=== PATIENT | female | born 1995 | race Caucasian/White ===

== ENCOUNTER → 2022-09-14 15:01 | Outpatient (CLI) | payer OTHER, SELFPAY ==
--- NOTE | ~2022-09-14 | XR_ITS ---
XR lumbar spine 2-3V DATE: 09/14/2022 15:31 INDICATION: Low back pain following a fall 3 days ago TECHNIQUE: AP, lateral, coned lateral lumbosacral views COMPARISON: None FINDINGS: There is slight levoscoliosis. No fracture or bone destruction or spondylolisthesis. Lumbar and lumbosacral interspaces appear well preserved. The lumbar pedicles are intact. The sacrum joints appear normal. IUD overlies the pelvis. IMPRESSION: Slight lumbar levoscoliosis IUD Reviewed, dictated and finalized at location A. [employer]
== END ==
PROVIDERS: PCP Internal Medicine; Visit Provider Internal Medicine
DX: M54.50 Low back pain, unspecified (principal); Z97.5 Presence of (intrauterine) contraceptive device
CPT/HCPCS: 72100

== ENCOUNTER 2023-04-20 13:49 | Outpatient (CLI) | payer OTHER, SELFPAY ==
--- NOTE | ~2023-04-20 | XR_ITS ---
AP and lateral views of the left hip Clinical history: Pain Findings: No acute fracture or dislocation is seen. Osseous alignment is anatomic. Bilateral hip and SI joint spaces are preserved. Soft tissues are unremarkable. IUD in place. Impression: No significant abnormality is seen. Reviewed, dictated and finalized at [facility]. Impression: No significant abnormality is seen.
--- NOTE | ~2023-04-20 | XR_ITS ---
AP and lateral views of the left femur Clinical History: Pain Findings: No acute fracture or dislocation is seen. Osseous alignment is anatomic. Visualized joint s paces are grossly preserved. Soft tissues are unremarkable. Impression: Unremarkable left femoral radiographs. Reviewed, dictated and finalized at location M. Impression: Unremarkable left femoral radiographs.
== END 2023-04-20 13:50 | disposition home or self-care (01) ==
PROVIDERS: PCP Internal Medicine; Visit Provider Internal Medicine
DX: M25.552 Pain in left hip (principal)
CPT/HCPCS: 73502; 73552

== ENCOUNTER 2024-09-19 13:52 | Outpatient (CLI) | payer OTHER, SELFPAY ==
--- NOTE | ~2024-09-19 | US_ITS ---
EXAMINATION: US pelvic complete w TV DATE: 09/19/2024 14:24 INDICATION: Suprapubic discomfort. TECHNIQUE: Multiple transabdominal and transvaginal sonographic images of the pelvis were obtained. COMPARISON: None. FINDINGS: TRANSABDOMINAL ULTRASOUND: The uterus measures 9.6 x 3.8 x 5.3 cm. There is physiologic free fluid in the pelvis. TRANSVAGINAL ULTRASOUND: The endometrial complex measures 6 mm in thickness. There is an intrauterine device in expected posit ion. The right ovary is not visualized. The left ovary measures 4.7 x 2.7 x 3.7 cm. There is a 3.2 cm cyst with peripheral low-level echoes in left ovary. There is normal vascular flow in left ovary. IMPRESSION: 1. 3.2 cm hemorrhagic cyst in left ovary. Pelvis ultrasound is recommended in 6-12 weeks. Reviewed, dictated and finalized at location A. [employer] IMPRESSION: 1. 3.2 cm hemorrhagic cyst in left ovary. Pelvis ultrasound is recommended in 6 -12 weeks.
== END 2024-09-19 13:53 | disposition home or self-care (01) ==
LOC: MICIMG 13:54
PROVIDERS: PCP Obstetrics & Gynecology; Visit Provider Internal Medicine
DX: N83.202 Unspecified ovarian cyst, left side (principal)
CPT/HCPCS: 76830; 76856